=== PATIENT | female | born 1985 | race Two or more races ===

== ENCOUNTER 2024-06-03 02:13 | Emergency (ER) | payer MEDICAID, SELFPAY ==
[2024-06-03 02:19] VITALS: BP 116/78; PULSE 90; RESP 16; TEMP 37.2; O2SAT 96
[2024-06-03 02:41] VITALS: PULSE 90; RESP 18; O2SAT 95
[2024-06-03 02:58] VITALS: BP 117/73; PULSE 90; RESP 19; TEMP 36.8; O2SAT 96
[2024-06-03 03:58] LABS: Basophils % (Auto) 0 % (0-2.5); Eosinophils # (Auto) 0.1 Thou/mm3 (0.0-0.5); Eosinophils % (Auto) 1 % (0-10); Hematocrit 39.8 % (36.0-46.0); Immature Granulocytes % (Auto) 0 % (0-0); Immature Granulocytes Auto 0.04 Thou/mm3 (0.00-0.00); Lymphocytes % (Auto) 27 % (10-50); Mean Corpuscular HGB Conc 35.2 g/dl (31.0-37.0); Mean Corpuscular Hemoglobin 31.7 pg (25.0-35.0); Mean Corpuscular Volume 90 fL (80-100); Monocytes # (Auto) 0.9 Thou/mm3 (0.0-0.8); Monocytes % (Auto) 9 % (0-12); Neutrophils # (Auto) 6.9 Thou/mm3 (1.8-7.7); Neutrophils % (Auto) 63 % (37-80); Nucleated Red Blood Cell % 0 /100 WBC (0); Platelet Count 358 Thou/mm3 (140-440); RDW Standard Deviation 40.4 fL (36.4-46.3); Red Blood Count 4.41 Miln/mm3 (4.00-5.20); White Blood Count 10.9 Thou/mm3 (3.6-11.0)
[2024-06-03 04:45] LABS: Alanine Aminotransferase 13 U/L (10-49); Albumin, Serum 4.2 gm/dL (3.5-5.0); Albumin/Globulin Ratio 1.8 (1.2-2.2); Alkaline Phosphatase 63 U/L (46-116); Anion Gap 9 (7-16); Aspartate Amino Transferase 14 U/L (0-34); BUN/Creatinine Ratio 17 Ratio (12-20); Bilirubin,Total 0.4 mg/dL (0.3-1.2); Blood Urea Nitrogen 10 mg/dL (9-23); Calcium 9.3 mg/dL (8.3-10.6); Calcium (Corrected) 9.3 mg/dL (8.5-10.1); Chloride 109 mMol/L (98-107); Creatinine (Component) 0.6 mg/dL (0.6-1.3); Globulin 2.4 gm/dL (2.3-3.5); Glucose 102 mg/dL (74-106); Lipase 27 U/L (12-53); Osmolality,Calculated 276 (275-295); Potassium 3.7 mMol/L (3.4-5.1); Sodium 139 mMol/L (136-145); Total Protein 6.6 gm/dL (5.7-8.2); eGFR > 60 See Note
[2024-06-03 04:52] LABS: Beta HCG,Quantitative 45434 mIU/mL (<5.0)
[2024-06-03 04:55] VITALS: BP 106/74; PULSE 79; RESP 18; TEMP 37; O2SAT 97
[2024-06-03 06:04] LABS: Collection Type, Urine Clean Catch
[2024-06-03 06:08] LABS: Bilirubin,Urine Negative (Negative); Blood,Urine 1+ (Negative); Clarity,Urine Clear (Clear/Hazy); Color,Urine Lt-Yellow (Lt Yel-Yel); Culture Indicated,Urine Not Indicated; Glucose, Urine Negative (Negative); Ketones,Urine Negative (Negative); Leukocyte Esterase,Urine Positive (Negative); Nitrite,Urine Negative (Negative); Protein,Urine Negative (Neg - Trace); RBC,Urine 7 /hpf (0-3); Specific Gravity,Urine 1.027 (1.001-1.035); Squamous Epithelial Cell,Urine 8 /hpf (0-5); Urobilinogen,Urine Negative mg/dL (0.0-1.0); WBC,Urine 4 /hpf (0-5)
--- NOTE | 2024-06-03 06:30 | XR_ITS ---
Examination: Complete OB ultrasound, less than 14 weeks, transabdominal Date and time of exam: June 03, 2024 0817 hrs. Indications: Onset pelvic pain today Technique: Obstetrical ultrasound images less than 14 weeks performed via transabdominal imaging Findings: A normal shaped single intrauterine gestation is present in the uterus. pole 5.5 cm corresponds to 12 weeks 1 day gestational age Cardiac motion 155 BPM Ultrasonographic survey of visible and placental structures unremarkable. Amniotic fluid volume appears appropriate for this estimated gestational age. Ovaries are normal Impression: Viable intrauterine gestation 12 weeks 1 day.
--- NOTE | 2024-06-03 06:30 | XR_ITS ---
Examination: Abdomen sonogram, complete Date and time of exam: June 03, 2024 at 0822 hrs. Indications: Onset right upper abdominal pain today. Technique: Multiple real-time grayscale transabdominal sonographic images of the abdomen have been obtained. Findings: Normal gallbladder. Normal common bile duct 0.2 cm Pancreatic head 2.1 Aorta not enlarged. Hepatomegaly 20.4 cm fatty infiltration Normal hepatopedal portal venous flow Patent IVC Right kidney 14.7 cm renal cortex 1.9 cm Left kidney 13.4 cm renal cortex 3.5 cm Mild renal parenchymal scar formation Splenomegaly 14.6 cm Impression: Normal gallbladder Hepatosplenomegaly Fatty liver
[2024-06-03 07:10] LABS: Base Excess, Venous -5 (-3-3); O2 Saturation, Venous 99 % (96-97); PCO2, Venous 32 mmHg (36-56); PO2, Venous 110 mmHg (15-58); pH, Venous 7.38 (7.33-7.66)
[2024-06-03 07:11] LABS: Lactate (Lactic Acid) 1.4 mMol/L (0.4-2.0)
[2024-06-03 07:20] VITALS: BMI 26.6
[2024-06-03] MEDS: fentaNYL CIT INJ 50 mCg/ML AMP 2ML IV (07:22)
[2024-06-03] MEDS: SODIUM CHLORIDE 0.9% 1000 ML 1,000 ML 999 ML IV (07:22)
[2024-06-03 07:40] LABS: Respiratory Syncytial Virus Ag Negative (Negative)
--- NOTE | 2024-06-03 09:14 | PD.EDABDPN ---
ED Abdominal Pain RME/HPI General Chief Complaint: Abdominal Pain Stated complaint: ABD PAIN Time seen by provider: 06/03/24 06:30 Arrival date/time: 06/03/24 02:13 RME / HPI RME / HPI narrative: 38 year old female who is Occitan speaking and currently , A1, presents to the ED BIBA from home for evaluation of abdominal pain today. Pain described as aching in sensation located diffusely, rating as moderate. Accompanied by feeling hot without measured fever. No other associated symptoms reported. Denies any vaginal discharge or bleeding. Related Data Allergies Allergy/AdvReac Type Severity Reaction Status Date / Time No Known Allergies Allergy Verified 06/03/24 03:05 Review of Systems Review of Systems Narrative Review of Systems: Constitutional: DENIES; Fevers Eyes: DENIES; Loss of vision Head/Ear/Nose: DENIES; Loss of hearing Throat: DENIES; Dysphagia Cardiovascular: DENIES; Chest pain, dyspnea or syncope Respiratory: DENIES; Shortness of breath Gastrointestinal: SEE HPI +abd pain DENIES; Rectal bleeding or melena. Genitourinary: DENIES; Dysuria (painful or difficult urination) Musculoskeletal: DENIES; Arthralgia (pain in a joint),; Skin: DENIES; Rash Neurological: DENIES; Loss of function or movement Psychiatric: DENIES; recent major life stressor, emotional problem, illicit drug use or abuse Endocrinology: DENIES; Weight change Hematologic/Lymphatic: DENIES; Abnormal bruising Allergic/Immunologic: DENIES; Urticaria (hives) Past Medical History Past Medical History CARDIAC: Negative Congestive Heart Failure RESPIRATORY: Negative Chronic Obstructive Pulmonary Disease (COPD) GENITOURINARY: Negative Renal Disease ENDOCRINE: Negative Diabetes Mellitus Type 1 or Diabetes Mellitus Type 2 Social History SMOKING STATUS: Current some day smoker ED Exam Narrative Physical exam: Physical Exam: General: The vital signs were reviewed. The patient is non-toxic, in no apparent distress and appears healthy with a patent airway, no respiratory distress and has no apparent circulatory problems. Head & Scalp: Normocephalic, atraumatic. Face: Appears normal and is without lesions, deformity. Ears: Left external pinna appears normal. Right external pinna appears normal. Eyes: The sclera is anicteric. No obvious photophobia. The Left and Right Orbit/Lid/Conjunctiva appears normal without swelling, discoloration or injection. Nose: The nose is without deformity, discharge or tenderness; Throat: Appears normal. The mucous membranes are pink and moist without exudates, redness or mass seen. The tongue appears normal. Neck: The neck is supple and no apparent mass or adenopathy. Chest: The chest wall is normal in size and symmetry and has no chest wall tenderness or crepitus. The patient displays normal ventilator effort without retractions, accessory muscle use and has adequate air movement bilaterally with no wheezes and no rales. Cardiovascular: Regular rate and rhythm; No murmurs, rubs, or gallops; Gastrointestinal: The abdomen appears normal. No obvious hernias or mass. The abdomen as right upper quadrant and right lower quadrant pain on initial evaluation otherwise is soft and benign, non-distended, with no pain, no guarding and no rebound tenderness. Bowel sounds are present and normal sounding. No CVA tenderness. Genitourinary: Back/Spine: Normal inspection nontender Extremities/Musculoskeletal/lymphatic: The bilateral upper and lower extremities are warm. There is no evidence of arterial insufficiency. There is no evidence of venous insufficiency/edema. The patient spontaneously moves bilateral upper and lower extremities with no pain and no limitation of movement. There is no apparent, injury or trauma. Skin: The skin is warm, dry and intact. No rashes. No petechia. No purpura. No abnormal bruising. The color is appropriate with no cyanosis. Mental status/Psychiatric: Mental status is appropriate for age. The patient has no apparent delusions, visual hallucinations, no apparent audible hallucinations. The patient has no apparent suicidal thoughts/ideation and no apparent homicidal thoughts/ideation. Neurological: The patient is awake, alert, interactive, cordial, cooperative and is oriented to name and situation. The patient follows commands and answers historical question with no impairment. There is no visual disturbance apparent. The pupils are equal and reactive bilaterally with normal eye movements and no diplopia The bilateral upper and lower extremities have normal strength, normal range of motion and normal functioning. The gait, station and balance appear to be baseline with no acute change Course Quality Measures none Orders Category Date Time Status Bedside COVID-19 Antigen Test NOW Care 06/03/24 06:32 Completed Bedside Influenza A&B Antigen Test NOW Care 06/03/24 06:32 Completed US OB <= 14 weeks fetus Stat Exams 06/03/24 06:30 Completed US abdomen Stat Exams 06/03/24 06:30 Completed ABO/RH Type - Stat Lab 06/03/24 03:02 Completed Beta HCG,Quantitative Stat Lab 06/03/24 03:02 Completed Blood Culture (Lab) Stat Lab 06/03/24 06:51 Received CBC Stat Lab 06/03/24 03:02 Completed CMP [Comprehensive Metabolic Panel] Stat Lab 06/03/24 03:02 Completed Lactate (Lactic Acid) Stat Lab 06/03/24 06:51 Completed Lipase Stat Lab 06/03/24 03:02 Completed RSV [Respiratory Syncytial Virus Ag] Stat Lab 06/03/24 06:50 Completed UA, C/S IF [Urinalysis, C/S if Indicated] Stat Lab 06/03/24 05:55 Completed Venous Blood Gas Stat Lab 06/03/24 06:51 Completed Sodium Chloride 0.9% 1000 ml [Ns] 1,000 ml Med 06/03/24 06:30 Discontinued IV 150 mls/hr Sodium Chloride 0.9% 1000 ml [Ns] 1,000 ml Med 06/03/24 06:30 Discontinued IV 999 mls/hr fentaNYL INJ [Sublimaze Inj] Med 06/03/24 06:54 Discontinued 50 mcg IV X1 ONE Vital Signs Vital signs: Vital Signs Temperature 98.9 F 06/03/24 02:19 Pulse Rate 90 06/03/24 02:19 Respiratory Rate 16 06/03/24 02:19 Blood Pressure 116/78 06/03/24 02:19 Pulse Oximetry (%) 96 06/03/24 02:19 Oxygen Delivery Method Room Air 06/03/24 02:19 Abdominal Pain MDM MDM Narrative MDM Narrative:: Patient is G5, P3 SAB 1 comes in with abdominal pain for 1 day. She is currently with no vaginal bleeding or discharge she is Occitan speaking only her is doing the translation. They are from [place] originally. Clinically she has belly pain more in the right lower quadrant and right upper quadrant . Medical workup was initiated which includes a white count of 10.9 hemoglobin of 14.0 venous blood gas a pH of 738 pCO2 of 32 electrolytes sodium 139 potassium 3 7 chloride 109 CO2 21 BUN 10 creatinine 0.6 lactic acid 1.4 total bilirubin AST and ALT were entirely normal. Lipase was negative at 27 hormone came back at 45,434. Urinalysis was a nonclean-catch specimen with 8 squames and 7 red blood cells and 4 white cells. She is O+. Ultrasound of the abdomen reveals no gallstones. There are some mild fatty infiltration in her liver with some mild hepatomegaly and mild splenomegaly. An ultrasound of the pelvis reveals a 12-week 1 day live single intrauterine gestation . No other finding was seen. There was good flow to bilateral ovaries On reevaluation at 1500 hrs. the patient has no pain she is ambulatory she feels much better she got a liter and a half of fluid she is also drinking without any nausea or vomiting feels good wants to go home. She is smiling. She was advised not to smoke while evidently she is smoking consistently throughout her previous pregnancies also. communicated this to her and very strong terms as he also was upset that she continues to smoke during the . She also was advised at great length through the to return if her abdominal pain returns and persists or she getting sick in any other way. They have care scheduled for the next month evidently that was the soonest they can get in. They know to return there is any vaginal discharge or bleeding. Patient data External records reviewed:: [facility] previous records Clinical information provided by:: patient and spouse Social determinants that could affect healthcare access:: none Patient has the following chronic illnesses:: Smoking How is presenting disease/condition affected by chronic disease/condition?: no chronic disease Evaluation data The following diagnostics were reviewed and interpreted by me:: lab results (See MDM) and radiology exam(s) (See MDM) Lab and/or radiology exams considered but not ordered:: MRI of abdomen to rule out appendectomy Interpretation Summary: See [facility] Medications / Prescriptions Medications or Prescriptions considered but not ordered:: None Medication administrations:: Medication Administration History Discontinued Medications Fentanyl Citrate (Fentanyl Cit Inj 50 Mcg/Ml Amp 2ml) 50 mcg IV X1 ONE Stop: 06/03/24 06:55 Last Admin: 06/03/24 07:22 Dose: 50 mcg Documented By: MELISSA Sodium Chloride (Ns) 1,000 mls @ 150 mls/hr IV .Q6H40M ONE Stop: 06/03/24 13:09 Sodium Chloride (Ns) 1,000 mls @ 999 mls/hr IV .Q1H1M ONE Stop: 06/03/24 07:30 Last Infusion: 06/03/24 08:25 Dose: Infused Documented By: Admin: 06/03/24 07:22 Dose: 999 mls/hr Documented By: MELISSA As above Consultations Consultation(s) initiated? (list below): No Diagnosis Differential diagnosis abdominal pain: abdominal pain, acute appendicitis, constipation and other Most likely diagnosis given after review of the tests above:: Abdominal pain resolved unknown etiology Admission Indicated Admission indicated?: not indicated Admission Request Was there a request for admission?: No Disposition Plan Disposition Plan: Discharge (Patient advised to return if getting worse in any way follow-up with care seem to get better with time and reassurance that the was well.) Discharge Attestation Discharge Attestation: The patient and all family members were given an opportunity to ask questions and understood the discharge instructions. Discharge instructions specifically effects, indications for sooner follow up or return to the emergency department, and the expected course of current diagnosis. Patient condition: Stable Discharge Plan Plan Patient Disposition: HOME (Self Care) Patient condition on transfer: Stable Prescriptions/Referrals Referrals: No Primary/Family,Physician [Primary Care Provider] - In 1 week Problem List Clinical Impression: Abdominal pain, First trimester , Tobacco use Patient/Caregiver Discharge Instructions Education Materials: Abdominal Pain, Be Smoke-Free During Additional Instructions: Please return if your abdominal pain returns and persists. If getting worse anyway please return. Follow-up with your OB doctor for your care. As already mentioned please stop smoking as this is detrimental to your developing fetus and for the . Print Language: Bengali
[2024-06-03 12:00] VITALS: BP 96/68; PULSE 76; RESP 18; TEMP 37.1; O2SAT 96
--- NOTE | 2024-06-03 12:23 | PRELIM_ITS ---
Ultrasound Abdomen. June 03, 2024 0832 hours Clinical history: Back pain abdominal pain lower Technique: Grayscale and color flow images of the abdomen are provided. Hepatic and portal veins were also imaged with color flow images. Comparison: No prior study is available for comparison at the time of interpretation Findings: The liver is enlarged measuring 20.4 cm and demonstrates increased echogenicity. No intrahepatic biliary ductal dilatation. No gallbladder calculus, wall thickening or pericholecystic fluid is demonstrated. The common bile duct is normal in caliber at 2 mm. No free fluid is demonstrated on the submitted images. The pancreas is unremarkable to the extent visualized. The right kidney measures 14.7 x 5.8 x 6.7 cm. The left kidney measures 15.4 x 6.2 x 5.4 cm. There is no hydronephrosis and the corticomedullary differentiation is maintained. The spleen is mildly enlarged measuring 14.6 cm in length. The abdominal aorta and inferior vena cava to the extent visualized are within normal limits. Impression: Mild hepatomegaly with fatty infiltration. Mild splenomegaly. Report Electronically Signed By: Stew San 06/03/2024 12:22:42 PM [EST]
--- NOTE | 2024-06-03 12:23 | PRELIM_ITS ---
Obstetric ultrasound (transabdominal). June 03, 2024 0817 hours Clinical history: Right lower quadrant pain Technique: Real-time ultrasound was performed using Duplex scanning including arterial inflow, venous outflow, color and spectral Doppler analysis of both ovaries. Comparison: No prior study is available for comparison at the time of interpretation Findings: There is an intrauterine gestation with a single live fetus of mean gestational age 12 weeks and 1 day (CRL= 5.5 cm). cardiac activity is present at heart rate of 155 beats per minute. Estimated due date by ultrasound is 01/20/2025. The uterus measures 14.4 x 7.4 x 9.5 cm. The right ovary measures 2.7 x 1.8 x 2.6 cm and is unremarkable. The left ovary measures 2.1 x 1.8 x 1.9 cm and is unremarkable. Both ovaries demonstrate color flow and spectral waveforms on Doppler evaluation. There is no free fluid in the pelvis. Impression: Intrauterine gestation with a single live fetus of mean gestational age 12 weeks and 1 days. Report Electronically Signed By: Stew San 06/03/2024 12:22:13 PM [EST]
[2024-06-03 14:50] VITALS: BP 107/68; PULSE 78; RESP 18; TEMP 36.9; O2SAT 97
== END 2024-06-03 15:23 | disposition home or self-care (01) ==
PROVIDERS: Emergency Medicine; Emergency Provider Emergency Medicine
DX: O26.891 Other specified pregnancy related conditions, first trimester (principal); R10.31 Right lower quadrant pain; Z3A.00 Weeks of gestation of pregnancy not specified; R10.11 Right upper quadrant pain
CPT/HCPCS: 36415; 76700; 76801; 80053; 81001; 82803; 83605; 83690; 84702; 85025; 86900; 86901; 87040; 87400; 87634; 87651; 87811; 96360; 99284; J3010; J7030

== ENCOUNTER 2024-12-10 18:25 | Inpatient (IN) | payer MEDICAID, SELFPAY ==
[2024-12-10] VITALS (36 sets, daily range): BP systolic 111–144; BP diastolic 66–89; PULSE 85–148; RESP 18–97; TEMP 36.2; O2SAT 89–99; BMI 32.4; BMI 27.1
[2024-12-10] MEDS: OXYTOCIN in NS 20 units 20 UNIT/1,000 ML BAG 125 UNIT IV (19:15)
[2024-12-10 19:16] LABS: Basophils # (Auto) 0.0 Thou/mm3 (0.0-0.2); Basophils % (Auto) 0 % (0-2.5); Eosinophils # (Auto) 0.0 Thou/mm3 (0.0-0.5); Eosinophils % (Auto) 0 % (0-10); Hematocrit 43.6 % (36.0-46.0); Hemoglobin 15.5 g/dL (12.0-16.0); Immature Granulocytes Auto 0.08 Thou/mm3 (0.00-0.00); Lymphocytes # (Auto) 3.0 Thou/mm3 (1.0-4.8); Lymphocytes % (Auto) 19 % (10-50); Mean Corpuscular HGB Conc 35.6 g/dl (31.0-37.0); Mean Corpuscular Hemoglobin 32.2 pg (25.0-35.0); Mean Corpuscular Volume 91 fL (80-100); Monocytes # (Auto) 0.9 Thou/mm3 (0.0-0.8); Monocytes % (Auto) 6 % (0-12); Neutrophils # (Auto) 11.9 Thou/mm3 (1.8-7.7); Neutrophils % (Auto) 74 % (37-80); Nucleated Red Blood Cell # 0.00 Thou/mm3 (0.00-0.00); Nucleated Red Blood Cell % 0 /100 WBC (0); Platelet Count 378 Thou/mm3 (140-440); RDW Standard Deviation 43.6 fL (36.4-46.3); Red Blood Count 4.81 Miln/mm3 (4.00-5.20); White Blood Count 16.0 Thou/mm3 (3.6-11.0)
[2024-12-10] MEDS: LIDOCAINE HCL 1% 20 ML VIAL INFL (19:22)
[2024-12-10] MEDS: fentaNYL CIT INJ 50 mCg/ML AMP 2ML 100 MCG IVP (19:22)
[2024-12-10] MEDS: BENZO/LANO/ALOE (Dermoplast) 60 GM CAN 1 SPRAY TOP (20:07)
--- NOTE | 2024-12-10 20:08 | PD.LDDS ---
DS: Providers Provider Date of admission: 12/10/24 18:56 Primary care physician: Physician No Primary/Family Admitting Provider: Junior Cedeño MD Attending Provider on Admission: Junior Cedeño MD Attending Provider on DC: Junior Cedeño MD Discharging Provider: Junior Cedeño MD DS: Diagnosis Problem List Completed Was Problem List Reviewed/Reconciled?: Yes Summary/Hosp Course Peripartum Data Delivery Method: Normal Vaginal Delivery Time Spent with Patient Time attestation: Total time spent providing and/or coordinating discharge services: Exam Vital Signs Temp Pulse Resp BP Pulse Ox 97.1 F 89 18 127/88 H 96 12/10/24 18:30 12/10/24 20:00 12/10/24 18:30 12/10/24 20:00 12/10/24 20:07 Discharge Plan Plan Patient Disposition: HOME (Self Care) Patient condition on transfer: Stable Prescriptions/Referrals Prescriptions/Med Rec: New ibuprofen 600 mg tablet 600 mg PO Q6H PRN (Reason: pain) Qty: 30 0RF Referrals: No Primary/Family,Physician [Primary Care Provider] Patient/Caregiver Discharge Instructions Discharge Activity: activity as tolerated Other Discharge Activity Instructions:: Follow up office 6 weeks Print Language: Kyrgyz Stand Alone Forms: Mei Award Info., Patient Portal Info Letter Discharge Order Discharge Orders: Discharge (Routine); Ordered 12/11/24 Ordered By: Junior Cedeño Planned Discharge Date 12/11/24
--- NOTE | 2024-12-10 20:18 | PD.LDHP ---
Documentation for date of: 12/10/24 OB Labor/Induct. HPI History of Present Illness : 4 Para: 3 Term pregnancies: 3 pregnancies: 0 Living children: 3 History of Abortions: Spontaneous and Elective: 0 History of Vaginal deliveries: 3 History of sections: No History of : No ALBINO: 12/20/24 Gestational Age (weeks): 38 Gestational Age (days): 4 History of present illness: H and P dictated in Nuance on STAT line #9. [id number] History of Present Adequate Care: Yes Labs Labs: Positive: Rubella Titre, Negative: RPR, Hepatitis B, HIV, Chlamydia and Gonorrhea and Unknown: Herpes Type 1, Herpes Type 2 and Group Beta Strep Past Medical History Surgical History SURGICAL: Negative Section Meds Home Medications and Allergies Allergies Allergy/AdvReac Type Severity Reaction Status Date / Time No Known Allergies Allergy Verified 12/10/24 18:57 OB Exam Physical Exam Vital signs: Temp Pulse Resp BP Pulse Ox 97.1 F 88 18 123/85 H 95 12/10/24 18:30 12/10/24 20:15 12/10/24 18:30 12/10/24 20:15 12/10/24 20:12 OB Results Labs 12/10/24 18:40 Labs: Short CBC 12/10/24 Range/Units 18:40 WBC 16.0 H (3.6-11.0) Thou/mm3 Hgb 15.5 (12.0-16.0) g/dL Hct 43.6 (36.0-46.0) % Plt Count 378 (140-440) Thou/mm3
--- NOTE | 2024-12-10 20:19 | PD.LDDELS ---
Data ([place]) Data Hx Section: No : 4 Term: 3 : 0 Livin Abortions: Spontaneous & Theraputic: 0 Delivery Data ([place]) Labor Data Initiation of labor: Spontaneous Induction/Augmentation Agent: Artificial ROM ROM date: 12/10/24 ROM time: 19:05 Amniotic membrane rupture type: Artificial Amniotic fluid description: Clear Delivery Data EDC: 12/20/24 EDC calculated by:: LMP/early US confirmation Onset of labor date: 12/10/24 Onset of labor time: 15:00 Complete dilation date: 12/10/24 Complete dilation time: 19:08 [place] delivery date: 12/10/24 [place] delivery time: 19:13 Gestational age (weeks): 38 Gestational age (days): 4 Placenta delivery date: 12/10/24 Placenta delivery time: 19:18 Stage 1 total time: Labor - Stage 1 Duration 4 hours and 8 minutes Delivered by: Junior Cedeño Delivery nurse: Maren Apple RN [place] nurse: Annabel Madrid RN Care Specialist at delivery: No Support person(s) at delivery: father of the baby Delivery Method Delivery method: Normal Vaginal Delivery Presentation: Vertex position: OA Anesthesia Type Anesthesia Type: None Placenta Placenta delivery description: Spontaneous Cord blood sent to lab: Yes cord blood collection: Cord Blood Type Lacerations #1: Perineal: 2nd degree Labial: Right: 2nd degree Perineal repair Sutures used for repair: 3.0 Chromic EBL Estimated blood loss (ml): 150 Umbilical Cord cord description: 3 Vessels Complications Complications: None [place] Data ([place]) [place] Data order: 1 [place]'s gender: Female Identification band number: [id number] weight (gms): 7 lb 2.288 oz Weight (pounds): 7 lbs and 2.3 ozs 1 minute: 8 5 minutes: 9
--- NOTE | 2024-12-10 21:03 | ESHP_ITS ---
RE: UZMA SEGURA : 1985 DATE OF ADMISSION: 12/10/2024 HISTORY OF PRESENT ILLNESS: This is a 39-year-old 4, para 3-0-0-3 with due date of 12/20 with intrauterine at 38 weeks and 4 days who presents to labor and delivery, complaining of contractions and she rapidly progressed to fully dilated where she underwent spontaneous rupture of membranes of clear fluid and she delivered a viable female infant without complication. Her care was uncomplicated. A maternal medicine ultrasound on 09/06 showed normal anatomy. MEDICATIONS: multivitamin 1 p.o. daily. SOCIAL HISTORY: She denies any alcohol, drug use, or smoking. She speaks Amharic. PAST MEDICAL HISTORY: Advanced maternal age. OB HISTORY: Three previous full-term normal vaginal deliveries. PAST SURGICAL HISTORY: Denies. FAMILY HISTORY: Denies. REVIEW OF SYSTEMS: She denies any chest pain, palpitations, cough, fever, shortness of breath, flank pain, or lower extremity pain. PHYSICAL EXAM: VITAL SIGNS: Blood pressure is 120/80, heart rate 88, respiration 18, temperature is 98.6. HEENT: Oropharynx and sclerae clear. LUNGS: Clear to auscultation bilaterally. HEART: Regular rate and rhythm. ABDOMEN: Gravid consistent with 7 pounds. EXTREMITIES: Nontender. SKIN: No gross rashes or lesions. NEUROLOGIC: No focal deficit. ASSESSMENT: Intrauterine at 38 weeks and 4 days, active labor, status post spontaneous vaginal delivery. PLAN: care. DT: 20:17:15 TT: 21:01:00 Ref: [id number] - TID: [id number]
[2024-12-10] MEDS: HYDROcodone/APAP 5/325 TABLET 1 TAB PO (21:35)
[2024-12-10 22:16] LABS: Syphilis Nonreactive (Nonreactive)
[2024-12-11] VITALS: BP 107/73; PULSE 82; RESP 18; TEMP 36.9; O2SAT 97
[2024-12-11] MEDS: IBUPROFEN TAB 400 MG TABLET 800 MG PO (02:57)
[2024-12-11 04:00] VITALS: BP 121/83; PULSE 74; RESP 18; TEMP 36.6; O2SAT 98
[2024-12-11 06:03] LABS: Basophils # (Auto) 0.0 Thou/mm3 (0.0-0.2); Basophils % (Auto) 0 % (0-2.5); Eosinophils # (Auto) 0.0 Thou/mm3 (0.0-0.5); Eosinophils % (Auto) 0 % (0-10); Hematocrit 39.2 % (36.0-46.0); Hemoglobin 13.9 g/dL (12.0-16.0); Immature Granulocytes Auto 0.06 Thou/mm3 (0.00-0.00); Lymphocytes # (Auto) 2.9 Thou/mm3 (1.0-4.8); Lymphocytes % (Auto) 19 % (10-50); Mean Corpuscular HGB Conc 35.5 g/dl (31.0-37.0); Mean Corpuscular Hemoglobin 32.0 pg (25.0-35.0); Mean Corpuscular Volume 90 fL (80-100); Monocytes # (Auto) 1.1 Thou/mm3 (0.0-0.8); Monocytes % (Auto) 7 % (0-12); Neutrophils # (Auto) 11.1 Thou/mm3 (1.8-7.7); Neutrophils % (Auto) 73 % (37-80); Nucleated Red Blood Cell # 0.00 Thou/mm3 (0.00-0.00); Nucleated Red Blood Cell % 0 /100 WBC (0); Platelet Count 317 Thou/mm3 (140-440); RDW Standard Deviation 43.0 fL (36.4-46.3); Red Blood Count 4.34 Miln/mm3 (4.00-5.20); White Blood Count 15.2 Thou/mm3 (3.6-11.0)
[2024-12-11 07:46] VITALS: BP 123/80; PULSE 80; RESP 18; TEMP -12.7; TEMP 9; O2SAT 98
[2024-12-11] MEDS: DOCUSATE SOD 100 MG CAPSULE PO (08:45)
--- NOTE | 2024-12-11 08:49 | PC.CC ---
TRIM SAWYER, Nichole, met with patient [id number] to do initial assessment due to being late to care at 14 weeks. TRIM SAWYER introduced herself, role in the agency, reason for visit, and discussed limits of confidentiality. At bedside was patient's Jose Anderson whom patient provided consent to remain in the room during assessment. Patient appeared alert and oriented to self, time, place, and situation. Patient appears stated age. Patient made good eye contact. Patient?s behavior appeared ordinary. Patient?s mood appears ordinary. No signs of delusions or hallucinations. This is 39-year-old, female who presented to the hospital to deliver her daughter. Patient reported that she resides at home with her . Patient reported that prior to admission, she was not employed or attending school. She reports being independent with all her ADLs, no DME use. Patient denies any history or current domestic violence or child welfare services involvement. Patient reported she was late to care because at 14 weeks was the soonest she could get into a provider. Patient reports she has all needed supplies for the baby upon discharge. Patient reports she will be . SW provided psychoeducation regarding baby blues and Post- Depression, as well as counseling groups at [facility]. SW provided community resources: Warm Line and Crisis Line.
--- NOTE | 2024-12-11 08:58 | ESPR_ITS ---
RE: UZMA SEGURA : 1985 DATE OF SERVICE: 12/11/2024 date number 1. The patient denies any problem or complaint. She is voiding. She is ambulating. She is tolerating regular diet. She is passing flatus. She denies any excessive vaginal bleeding. She denies any dizziness or lightheadedness. She denies any chest pain, palpitations, shortness of breath or lower extremity pain. Blood pressure 123/80, heart rate 80, respirations 18, temperature is 97.9. Lungs clear to auscultation bilaterally. Heart regular rate rhythm. Abdomen; fundus is firm, nontender. Extremities nontender. Hemoglobin pre-delivery is 15.5, post delivery is 13.9. ASSESSMENT: day number 1, status post spontaneous vaginal delivery. PLAN: Discharge home. Discharge instructions given. Follow up in the office in 6 weeks. DT: 08:07:19 TT: 08:57:00 Ref: [id number] - TID: [id number]
[2024-12-11] MEDS: ONDANSETRON ODT 4 MG TABRAP PO (12:24)
[2024-12-11] MEDS: HYDROcodone/APAP 5/325 TABLET 1 TAB PO (12:29)
== END 2024-12-11 19:53 | disposition home or self-care (01) | DRG 560 ==
LOC: S4SX 20:07 → S4NX 22:23
PROVIDERS: Admitting Provider Specialist; Visit Provider Specialist
DX: O70.1 Second degree perineal laceration during delivery (principal); Z37.0 Single live birth; Z3A.38 38 weeks gestation of pregnancy
CPT/HCPCS: 36415; 59409; 85025; 86780; 86850; 86900; 86901; 94762; J2590; J3010; J3490; Q0162; A9270